=== PATIENT | male | born 1960 | race Caucasian/White ===

== ENCOUNTER 2017-01-05 20:21 | Emergency (ER) | payer BC ==
[2017-01-05 20:40] VITALS: BP 166/108
[2017-01-05] MEDS ORDERED: Proparacaine 0.5% Ophth Soln 15 ML Bottle EYELF ONE (20:43)
[2017-01-05] MEDS ORDERED: Proparacaine 0.5% Ophth Soln 15 ML Bottle ONE (20:44)
--- NOTE | 2017-01-05 21:07 | EDM.PDOC ---
[id number] SOMETHING IN EYE Time Seen by Provider: 01/05/17 20:45 Source: Reports: Patient History Limitations: Reports: No limitations - History of Present Illness INITIAL COMMENTS - FREE TEXT/NARRATIVE: 56-year-old male who was working out in the yard today developed a foreign body sensation in his left eye about 3 hours ago and it has worsened. Location: left eye Severity: moderate Improves with: Reports: Other (Topical proparacaine resolved his symptoms) Associated Symptoms (Eye): Reports: pain, orbital redness, FB sensation, sensitivity to light. Denies: eyelid matting, decreased/blurred - Related Data Allergies/ADRs: Allergies No Known Allergies Allergy (Verified 01/05/17 20:35) Home Meds: Ambulatory Orders Medication Instructions Recorded Confirmed *Cholesterol Med 01/05/17 Past Medical History Cardiovascular History: Reports: High cholesterol - Past Surgical History Musculoskeletal Surgical History: Reports: Arthroscopic knee Social & Family History - Tobacco Use Smoking Status *Q: Never Smoker - Caffeine Use Caffeine Use: Reports: Coffee - Recreational Drug Use Recreational Drug Use: No ED ROS GENERAL - Review of Systems Review Of Systems: See Below Constitutional: Denies: fever, chills Respiratory: Denies: Shortness of Breath Cardiovascular: Denies: Chest pain GI/Abdominal: Denies: Abdominal pain, Nausea, Vomiting Neurological: Denies: Headache ED EXAM GENERAL W FULL EYE - Physical Exam Exam: See Below Exam Limited By: No limitations General Appearance: alert, mild distress (Appeared quite uncomfortable prior to proparacaine) Eye Exam: left eye: conjunctival injection, foreign body (Eyelash was found deep in the lower left eyelid), bilateral eye: other (Small corneal abrasion or ulceration was seen just below the pupil at 5:00) Eyelids: left: erythema, lid everted for exam (Eyelash under the lower eyelid) Conjunctiva & Sclera: left: injected Cornea Exam: left: corneal abrasion (As above) Course - Vital Signs Last Recorded V/S: Last Vital Signs Temp 98.1 F 01/05/17 20:38 Pulse 101 H 01/05/17 20:38 Resp 18 01/05/17 20:38 BP 166/108 H 01/05/17 20:38 Pulse Ox 94 L 01/05/17 20:38 - Orders/Labs/Meds Meds: Medications Discontinued Medications Generic Name Dose Route Start Last Admin Trade Name Freq PRN Reason Stop Dose Admin Proparacaine HCl 1 ml 01/05/17 20:43 01/05/17 21:00 Proparacaine 0.5% Ophth Soln EYELF 01/05/17 20:44 5 drop ONETIME ONE Administration Proparacaine HCl Confirm 01/05/17 20:44 01/05/17 21:00 Proparacaine 0.5% Ophth Soln Administered 01/05/17 20:45 Not Given Dose 15 ml .ROUTE .[facility] ONE - Re-Assessments/Exams Free Text/Narrative Re-Assessment/Exam: 01/05/17 21:05 After proparacaine topical anesthesia the patient's pain resolved. With fluorescein stain there was a tiny uptake just below the pupil of the left eye. Exam was the lab revealed this is a small abrasion or ulceration and no foreign body. Both lids were everted and a eyelash was found embedded deep under the left lower eyelid. No other foreign body or abnormality was found. Departure - Departure Time of Disposition: 21:16 Disposition: Home, Self-Care 01 Condition: good Clinical Impression: Corneal abrasion Qualifiers: Encounter type: initial encounter Laterality: left Qualified Code(s): S05.02XA - Injury of conjunctiva and corneal abrasion without foreign body, left eye, initial encounter Foreign body of conjunctiva, left Qualifiers: Encounter type: initial encounter Qualified Code(s): T15.12XA - Foreign body in conjunctival sac, left eye, initial encounter Instructions: Corneal Abrasion, [id number] Referrals: PCP,None [Primary Care Provider] - Forms: ED Department Discharge Care Plan Goals: Use ointment on your lower eye lid 4 times a day for the next 3-4 days until symptoms are completely gone. If you are still having significant pain in 24- 48 hours please get rechecked.
== END 2017-01-05 21:16 | disposition home or self-care (01) ==
LOC: JP.ED 20:21
DX: S05.02XA Injury of conjunctiva and corneal abrasion without foreign body, left eye, initial encounter (principal); T15.12XA Foreign body in conjunctival sac, left eye, initial encounter; Z98.890 Other specified postprocedural states
CPT/HCPCS: 99283; A9270

== ENCOUNTER 2018-02-16 11:07 | Emergency (ER) | payer BC ==
[2018-02-16 11:28] VITALS: BP 120/74
[2018-02-16] MEDS ORDERED: Proparacaine 0.5% Ophth Soln 15 ML Bottle EYELF ONE (11:36)
--- NOTE | 2018-02-16 11:39 | EDM.PDOC ---
ED HPI GENERAL MEDICAL PROBLEM - General Chief Complaint: ENT Problem Stated Complaint: SOMETHING IN LEFT EYE Time Seen by Provider: 02/16/18 11:37 Source of Information: Reports: Patient History Limitations: Reports: No Limitations - History of Present Illness INITIAL COMMENTS - FREE TEXT/NARRATIVE: 57-year-old patient was out mowing his lawn when a ronnie of wind threw a bunch of foreign atrial into his left eye. This happened about 2 hours ago and he has a persistent foreign body sensation to the left eye. Onset: Sudden Duration: Hour(s): (2 hours ago) Associated Symptoms: Reports: No Other Symptoms Left Eye Pain Score (Numeric/FACES): 5 - Related Data Allergies Allergy/AdvReac Type Severity Reaction Status Date / Time No Known Allergies Allergy Verified 02/16/18 11:27 Home Meds: Home Meds *Cholesterol Med 01/05/17 [History] Past Medical History Cardiovascular History: Reports: High Cholesterol - Infectious Disease History Infectious Disease History: Reports: Chicken Pox - Past Surgical History Musculoskeletal Surgical History: Reports: Arthroscopic Knee Social & Family History - Tobacco Use Smoking Status *Q: Never Smoker Second Hand Smoke Exposure: No - Caffeine Use Caffeine Use: Reports: Coffee - Alcohol Use Days Per Week of Alcohol Use: 0 - Recreational Drug Use Recreational Drug Use: No ED ROS ENT - Review of Systems Review Of Systems: See Below Constitutional: Denies: Fever Respiratory: Denies: Shortness of Breath Cardiovascular: Denies: Chest Pain GI/Abdominal: Denies: Nausea, Vomiting Neurological: Denies: Headache ED EXAM, ENT - Physical Exam Exam: See Below Exam Limited By: No Limitations General Appearance: Alert, No Apparent Distress (Patient looks uncomfortable but not distressed) Eye Exam: Left Eye: Conjunctival Injection Head: Atraumatic Respiratory/Chest: No Respiratory Distress Course - Vital Signs Last Recorded V/S: Last Vital Signs Temp 98.9 F 02/16/18 11:26 Pulse 78 02/16/18 11:26 Resp 16 02/16/18 11:26 BP 120/74 02/16/18 11:26 Pulse Ox 94 L 02/16/18 11:26 - Orders/Labs/Meds Meds: Medications Discontinued Medications Generic Name Dose Route Start Last Admin Trade Name Freq PRN Reason Stop Dose Admin Proparacaine HCl 1 ml 02/16/18 11:36 02/16/18 11:40 Proparacaine 0.5% Ophth Soln EYELF 02/16/18 11:37 1 ml ONETIME ONE Administration - Re-Assessments/Exams Free Text/Narrative Re-Assessment/Exam: 02/16/18 12:16 Gross examination initially showed erythema and injection of the conjunctiva but no foreign body. Patient was then anesthetized with proparacaine, fluorescein stain was used and again showed no abnormality. Slit lamp exam was then done and showed no abnormality of the cornea, but when his eyelids were inverted he had a fairly large black piece of foreign body underneath the upper eyelid. This was not embedded nor was it damaging the cornea. It was removed with a sterile Q-tip without difficulty. Patient is given a keep his eye moist for the next 1-2 days but no further treatment is needed. Departure - Departure Time of Disposition: 12:20 Disposition: Home, Self-Care 01 Condition: Good Clinical Impression: Foreign body of conjunctiva, left Qualifiers: Encounter type: initial encounter Qualified Code(s): T15.12XA - Foreign body in conjunctival sac, left eye, initial encounter - Discharge Information Instructions: Eye Foreign Body, [id number] Referrals: PCP,None [Primary Care Provider] - Forms: ED Department Discharge Care Plan Goals: Keep eye moist and avoid rubbing today. Return anytime if worsening or consider rechecking tomorrow if not back to baseline.
== END 2018-02-16 12:20 | disposition home or self-care (01) ==
LOC: JP.ED 11:07
DX: T15.12XA Foreign body in conjunctival sac, left eye, initial encounter (principal); T15.02XA Foreign body in cornea, left eye, initial encounter
CPT/HCPCS: 65222; 99283-25; A9270-GY